=== PATIENT | female | born 1935 | race Two or more races ===

== ENCOUNTER 2020-01-02 22:36 | Inpatient (IN) | payer OTHER ==
[~2020-01-02] VITALS: Ht 160 cm; Wt 59.0 kg
--- NOTE | 2020-01-02 22:53 | NUR ---
Abhijeet Lynn - Son [phone]
[2020-01-02] MEDS ORDERED: ACETAMINOPHEN 650 MG/SUPP.RECT RC ONE ×2 (23:00)
[2020-01-02] MEDS ORDERED: IV NS 0.9% 500 ML BAG IV ONE (23:00)
--- NOTE | 2020-01-02 23:14 | NUR ---
[place] AT [facility]. TO ER BED 5. BREATHING RAPID AND SHALLOW. BROUGHT IN ON GURNEY. BROUGHT IN FOR DESATURATION @ 88% AT THE FACILITY PER REPORT. PT IS NOTED LETHARGIC. NOTED BREATHING RAPID AND SHALLOW. PT IS PLACED ON O2 WITH FACE MASK @ 15LPM AND SATTING @ 97%. PT IS ALSO NOTED W/ TACHYCARDIA IN 130S. AND RECTAL TEMP AT 103.5. IV LINE OBTAINED ON THE L AC 18G. BLOOD DRAWN AND GIVEN TO [facility] AT [facility]. WAS AT BEDSIDE FOR EVAL. URINE COLLECTED VIA STRAIGHT CATH
--- NOTE | 2020-01-02 23:20 | NUR ---
IV INITIATED LAC 18G. LABS DRAWN FROM SITE AND SENT TO LAB. IV INTACT AND PATENT, PLACED ON SALINE LOCK. URINE COLLECTED AND SENT TO LAB.
[2020-01-02] MEDS ORDERED: FLUT1BLS IH (23:22)
[2020-01-02] MEDS ORDERED: SITA50TA PO (23:22)
[2020-01-02] MEDS ORDERED: ATOR40TA PO (23:22)
[2020-01-02] MEDS ORDERED: ASPI-1420 PO (23:22)
[2020-01-02] MEDS ORDERED: CITA10TA9 PO (23:22)
[2020-01-02 23:28] LABS: BASOPHILS % (AUTO) 0.1 % (0.0-2.0); HEMATOCRIT 46 % (33-45); HEMOGLOBIN 14.8 g/dL (11.5-14.8); LYMPHOCYTES # (AUTO) 0.3 /CMM (0.8-4.8); MEAN CORPUSCULAR HGB CONC 33 g/dl (31.0-36.0); MEAN CORPUSCULAR VOLUME 82 fL (82-100); MONOCYTES # (AUTO) 1.1 /CMM (0.1-1.30); MONOCYTES % (AUTO) 8.2 % (2.0-12.0); NEUTROPHILS # (AUTO) 11.8 /CMM (1.8-8.9); NEUTROPHILS % (AUTO) 89.7 % (43.0-81.0); PLATELET COUNT (AUTO) 149 /CMM (150-450); RED BLOOD CELL COUNT(AUTO) 5.58 MIL/uL (4.0-5.2); WHITE BLOOD COUNT (AUTO) 13.2 K/uL (4.3-11.0)
[2020-01-02] MEDS ORDERED: LACT1CAP89 PO (23:28)
[2020-01-02] MEDS ORDERED: CYAN-51 PO (23:28)
[2020-01-02] MEDS ORDERED: METF-442 PO (23:28)
[2020-01-02] MEDS ORDERED: PSYL822P20 PO (23:28)
[2020-01-02] MEDS ORDERED: LEVO75TA7 PO (23:28)
[2020-01-02] MEDS ORDERED: MEMA10TA PO (23:28)
[2020-01-02] MEDS ORDERED: LOSA100T31 PO (23:28)
[2020-01-02] MEDS ORDERED: AMLO5TAB9 PO (23:28)
[2020-01-02] MEDS ORDERED: CHOL200013 PO (23:28)
[2020-01-02 23:31] LABS: APPEARANCE,URINE Cloudy (CLEAR); BILIRUBIN,URINE SMALL (NEGATIVE); BLOOD, URINE Large Ery/uL (NEGATIVE); COLOR,URINE Pink (YELLOW); KETONES,URINE Negative (NEGATIVE); LEUKOCYTE ESTERASE ,URINE Large (NEGATIVE); NITRITE, URINE Negative (NEGATIVE); PROTEIN,URINE >=300 mg/dl (NEGATIVE); UGLUCOSE Negative (NEGATIVE)
[2020-01-02 23:39] LABS: CALCIUM, SERUM 9.9 mg/dL (8.5-10.1); CARBON DIOXIDE 22 mmol/L (21-32); CHLORIDE 106 mmol/L (98-107); CREATININE 1.6 mg/dL (0.6-1.3); GLUCOSE 201 mg/dL (74-106); POTASSIUM 3.2 mmol/L (3.5-5.1); SODIUM SERUM 145 mmol/L (136-145); UREA NITROGEN, BLOOD 24 mg/dL (7-18)
[2020-01-02 23:53] LABS: ALANINE AMINOTRANSFERASE 23 U/L (12-78); ALBUMIN 3.4 g/dL (3.4-5.0); ALKALINE PHOSPHATASE 98 U/L (46-116); ASPARTATE AMINOTRANSFERASE 20 U/L (15-37); B-TYPE NATRIURETIC PEPTIDE 1801 PG/ML (0-125); BILIRUBIN,DIRECT 0.4 mg/dL (0.0-0.2); TOTAL PROTEIN, SERUM 7.9 g/dL (6.4-8.2)
[2020-01-02] MEDS ORDERED: AZITHROMYCIN 500 MG VIAL ONE (23:58)
[2020-01-03] MEDS ORDERED: AZITHROMYCIN 500 MG in IV D5W 250 ML IV ONE ×2
[2020-01-03] MEDS ORDERED: CEFTRIAXONE 1GM BAG (ER ONLY) 50 ML IV ONE (00:25)
[2020-01-03 00:26] LABS: BACTERIA,URINE Moderate /HPF (None Seen); RBC,URINE TOO NUMEROUS TO COUN /HPF (0-2); SQUAMOUS EPITHELIAL CELL,UR Few /HPF (None Seen); WBC,URINE TOO NUMEROUS TO COUN /HPF (0-3)
[2020-01-03] MEDS ORDERED: CEFTRIAXONE 1GM BAG (ER ONLY) 1 GM/50 ML PIGGYBACK IV ONE (00:30)
--- NOTE | 2020-01-03 00:36 | NUR ---
BP NOTED @ 93/58 HR 112. AWARE. NNO
[2020-01-03 01:24] LABS: FERRITIN 161 ng/mL (8-388)
--- NOTE | 2020-01-03 02:00 | NUR ---
PT'S O2 TITRATED DOWN TO 10LPM FROM 15LPM. TOLERATING WELL W/O ANY DISTRESS. O2 SAT @ 97%
--- NOTE | 2020-01-03 03:09 | NUR ---
dr. dominique at bedside
--- NOTE | 2020-01-03 04:01 | NUR ---
PT IN BED SLEEPING. NO RESP DISTRESS NOTED. EASILY ARROUSABLE.
--- NOTE | 2020-01-03 06:53 | NUR ---
PT IN BED SLEEPING. NAD NOTED. RESPONSIVE TO VERBAL STIMULI.
--- NOTE | 2020-01-03 07:16 | NUR ---
SPOKE WITH KONSTANTIN PT'S SON FOR PT UPDATE.
--- NOTE | 2020-01-03 07:18 | NUR ---
PLEASE CALL SON TO NOTIFY ROOM ASSISNGMENT.
[2020-01-03] MEDS ORDERED: ACET-2605 PO (07:41)
[2020-01-03] MEDS ORDERED: CALC-7 PO (07:41)
--- NOTE | 2020-01-03 08:00 | NUR ---
Request for tele bed to nursing evaporator supervisor. No tele monitors at this time per Steffi shay sup.
[2020-01-03] MEDS ORDERED: ASPIRIN 325 MG TABLET ONE (08:45)
[2020-01-03] MEDS ORDERED: ATORVASTATIN 40 MG TABLET PO SCH (09:00)
[2020-01-03] MEDS ORDERED: CITALOPRAM HYDROBROMIDE 10 MG TABLET PO SCH (09:00)
[2020-01-03] MEDS: ASPIRIN EC 81 MG TABLET.DR PO SCH (09:13)
[2020-01-03] MEDS: FLUTICASONE/VILANTEROL 1 EACH BLST.W.DEV IH SCH (09:14)
[2020-01-03] MEDS: LEVOTHYROXINE SODIUM 75 MCG TABLET PO SCH (09:14)
[2020-01-03] MEDS: MEMANTINE HCL 5 MG TABLET PO SCH ×2 (09:14→17:16)
[2020-01-03] MEDS: LINAGLIPTIN 5 MG TABLET PO SCH (09:14)
--- NOTE | 2020-01-03 09:22 | NUR ---
Await bed assignment. No beds available at this time. Pt updated with plan
--- NOTE | 2020-01-03 09:39 | NUR ---
report given to GRETTA Mathur - continue plan of care.
--- NOTE | 2020-01-03 10:25 | NUR ---
RECIEVED PATIENT FROM ER. PATIENT IN STABLE CONDITION. A/OX1, CONFUSED, RESPONSIVE AND AROUSABLE BUT LETHARGIC. NOT IN ANY FORM OF DISTRESS. NO SOB, PLACED ON 2 LPM OXYGEN VIA NC SATTING 94%. DENIED PAIN OR DISCOMFORT AT THIS TIME. IV ACCESS INTACT AND PATENT. KEPT PATIENT SKIN CLEAN AND DRY. SKIN INTACT. SITUATED PATIENT IN THE ROOM. SAFETY MEASURES INITIATED. BED IN LOW/LOCKED PSOTIION, SDIERAILS UPX2, CALLL IGHT IN REACH. WILL CONT TO MONIOTR ACCORDINGLY.
[2020-01-03 10:45] VITALS: BP 113/45
[2020-01-03] MEDS ORDERED: POTASSIUM CHLORIDE 20 MEQ TAB.PRT.SR PO SCH (11:00)
[2020-01-03 12:00] VITALS: BP 98/42
[2020-01-03] MEDS ORDERED: POTASSIUM CHLORIDE 20 MEQ TAB.PRT.SR PO ONE (13:00)
[2020-01-03] MEDS: ENOXAPARIN SODIUM 30 MG/0.3 ML DISP.SYRIN SQ SCH (13:10)
--- NOTE | 2020-01-03 13:33 | NUR ---
RN NOTES RECEIVED A CALL FROM FAMILY, KONSTANTIN (SON) [phone]. INFORMED US THAT PATIENT'S CAREGIVER WAS POSITIVE COVID. WILL INFORM
[2020-01-03] MEDS ORDERED: ENOXAPARIN SODIUM 30 MG/0.3 ML DISP.SYRIN SQ SCH (15:00)
[2020-01-03] MEDS ORDERED: Z GUARD REMEDY 2 OZ OINT TP PRN (15:00)
[2020-01-03] MEDS ORDERED: ONDANSETRON HCL/PF 4 MG/2 ML VIAL IVP PRN (15:00)
[2020-01-03] MEDS ORDERED: FEE PK DOSING 1 MIN EA MC ONE (15:51)
[2020-01-03 15:58] LABS: ABG BASE EXCESS -1.1 mmol/L; ABG OXYGEN SATURATION 94.4 % (92.0-98.5); ABG PCO2 29.2 mmHg (35.0-45.0); ABG PO2 67.7 mmHg (75.0-100.0); AaDO2 111.9 mmHg; COHb 0.3 % (0.5-1.5); MetHb 0.3 % (0.0-1.5); O2Hb 93.8 % (94.0-97.0); SITE, ABG Right Radial; VENT MODE, BG NC 3L
[2020-01-03 16:00] VITALS: BP 115/56
[2020-01-03 16:31] LABS: BASOPHILS % (AUTO) 0.1 % (0.0-2.0); EOSINOPHILS % (AUTO) 1.3 % (0.0-6.0); HEMATOCRIT 39 % (33-45); HEMOGLOBIN 12.7 g/dL (11.5-14.8); LYMPHOCYTES # (AUTO) 0.5 /CMM (0.8-4.8); LYMPHOCYTES % (AUTO) 2.9 % (20.0-44.0); MEAN CORPUSCULAR HGB CONC 32 g/dl (31.0-36.0); MEAN CORPUSCULAR VOLUME 81 fL (82-100); MONOCYTES # (AUTO) 0.5 /CMM (0.1-1.30); MONOCYTES % (AUTO) 3.5 % (2.0-12.0); NEUTROPHILS # (AUTO) 14.6 /CMM (1.8-8.9); NEUTROPHILS % (AUTO) 92.2 % (43.0-81.0); PLATELET COUNT (AUTO) 127 /CMM (150-450); RED BLOOD CELL COUNT(AUTO) 4.87 MIL/uL (4.0-5.2); WHITE BLOOD COUNT (AUTO) 15.8 K/uL (4.3-11.0)
[2020-01-03 16:39] LABS: CALCIUM, SERUM 8.8 mg/dL (8.5-10.1); CARBON DIOXIDE 25 mmol/L (21-32); CHLORIDE 107 mmol/L (98-107); GLUCOSE 162 mg/dL (74-106); POTASSIUM 3.7 mmol/L (3.5-5.1); SODIUM SERUM 143 mmol/L (136-145); UREA NITROGEN, BLOOD 38 mg/dL (7-18)
[2020-01-03] MEDS ORDERED: DEXTROSE 50%-WATER 50 ML DISP.SYRIN IV PRN (17:00)
[2020-01-03] MEDS: IV NS 0.9% 1,000 ML IV PRN (17:14)
[2020-01-03] MEDS: HYDROXYCHLOROQUINE 200 MG TABLET PO SCH (17:16)
[2020-01-03] MEDS ORDERED: VANCOMYCIN HCL 0.75 GM in IV D5W 250 ML IV SCH (18:00)
[2020-01-03] MEDS: BLOOD SUGAR DIAGNOSTIC 1 EACH STRIP IN SCH ×2 (18:25→22:36)
--- NOTE | 2020-01-03 18:57 | NUR ---
rn closing notes patient in stable condition. all needs attended and provided. all due meds given as ordered. kept patient skin clean and dry. kept patient safe and comfortable. bed in low/locked position, siderils up, HOB elevated. call light in reach. will endorsed accordingly.
--- NOTE | 2020-01-03 19:20 | NUR ---
RN OPENING NOTE: PATIENT IN BED, AWAKE, AND HAVING DINNER. AAOX1. ON O2 AT 2 LPM VIA NC. NO RESPIRATORY DISTRESS. DENIES PAIN AT THIS TIME. BED LOCKED, ALARM ON, LOW POSITION. SIDE RAILS X 2 UP. HOB ELEVATED. ON DROPLET PRECAUTION FOR SUSPECTED COVID. (L) AC G18 C/D/I, FLUSHING WELL, ON NS AT 75 MLS/HR. WILL TURN AND REPOSITION Q2H FOR SKIN MANAGEMENT. CALL LIGHT WITHIN REACH. WILL CONT. TO MONITOR.
[2020-01-03 20:00] VITALS: BP 115/56
[2020-01-03] MEDS: MEROPENEM 1 G in IV NS 0.9% 100 ML IV SCH (22:10)
[2020-01-03] MEDS: INSULIN REGULAR, HUMAN 100 UNIT/ML 3 ML VIAL SQ PRN (22:37)
[2020-01-04] VITALS: BP 127/64
[2020-01-04] MEDS: AZITHROMYCIN 500 MG in IV D5W 250 ML IV SCH (00:33)
[2020-01-04 04:00] VITALS: BP_SYST 127; BP_SYST 143; BP_DIAS 64; BP_DIAS 70
--- NOTE | 2020-01-04 06:59 | NUR ---
RN CLOSING NOTE: PATIENT IN BED, ASLEEP, BUT EASILY AROUSABLE. NO SOB. NO C/O PAIN. IN NO ACUTE DISTRESS. PLACED AN ORDER FOR I.T. TO FIX TELEPHONE IN ROOM. WILL ENDORSE TO AM SHIFT NURSE FOR CONTINUITY OF CARE.
--- NOTE | 2020-01-04 07:30 | NUR ---
RN OPENING NOTE Patient is resting in bed, A/O x1, showing no signs of acute distress or SOB, saturating 94% on 3L NC. IV deonte in the RFA #22G is clean and patent running NS @ 75ml/hour. Patient has no complaints of pain at this time. Bed is in lowest position, side rails x3 in upright position, call light is within reach and patient is aware of how to call for assistance when needed. Will continue with plan of care.
[2020-01-04] MEDS: PANTOPRAZOLE 40 MG TABLET.DR PO SCH (07:37)
[2020-01-04] MEDS: BLOOD SUGAR DIAGNOSTIC 1 EACH STRIP IN SCH ×4 (07:37→21:39)
[2020-01-04] MEDS: LEVOTHYROXINE SODIUM 75 MCG TABLET PO SCH (07:37)
[2020-01-04 08:00] VITALS: BP 145/64
[2020-01-04 08:43] LABS: BASOPHILS % (AUTO) 0.2 % (0.0-2.0); EOSINOPHILS % (AUTO) 0.2 % (0.0-6.0); HEMATOCRIT 36 % (33-45); HEMOGLOBIN 12.3 g/dL (11.5-14.8); LYMPHOCYTES # (AUTO) 0.4 /CMM (0.8-4.8); MEAN CORPUSCULAR HGB CONC 34 g/dl (31.0-36.0); MEAN CORPUSCULAR VOLUME 80 fL (82-100); MONOCYTES # (AUTO) 0.8 /CMM (0.1-1.30); MONOCYTES % (AUTO) 5.5 % (2.0-12.0); NEUTROPHILS # (AUTO) 13.4 /CMM (1.8-8.9); NEUTROPHILS % (AUTO) 91.1 % (43.0-81.0); PLATELET COUNT (AUTO) 111 /CMM (150-450); RED BLOOD CELL COUNT(AUTO) 4.55 MIL/uL (4.0-5.2); WHITE BLOOD COUNT (AUTO) 14.7 K/uL (4.3-11.0)
[2020-01-04 09:04] LABS: ALANINE AMINOTRANSFERASE 19 U/L (12-78); ALBUMIN 2.5 g/dL (3.4-5.0); ALKALINE PHOSPHATASE 75 U/L (46-116); ASPARTATE AMINOTRANSFERASE 15 U/L (15-37); BILIRUBIN,TOTAL 1.1 mg/dL (0.2-1.0); CALCIUM, SERUM 8.8 mg/dL (8.5-10.1); CARBON DIOXIDE 26 mmol/L (21-32); CHLORIDE 107 mmol/L (98-107); CREATININE 1.6 mg/dL (0.6-1.3); GLUCOSE 166 mg/dL (74-106); MAGNESIUM 2.2 mg/dL (1.8-2.4); PHOSPHORUS 3.3 mg/dL (2.5-4.9); POTASSIUM 3.6 mmol/L (3.5-5.1); SODIUM SERUM 143 mmol/L (136-145); TOTAL PROTEIN, SERUM 6.8 g/dL (6.4-8.2); UREA NITROGEN, BLOOD 35 mg/dL (7-18)
[2020-01-04 09:11] LABS: CHOLESTEROL 77 mg/dL (<200); HDL CHOLESTEROL 13 mg/dL (40-60); LDL 40 mg/dL (0-99); THYROID STIMULATING HORMONE 1.508 uIU/mL (0.358-3.74); TRIGLYCERIDES 186 mg/dL (30-150)
[2020-01-04] MEDS: FLUTICASONE/VILANTEROL 1 EACH BLST.W.DEV IH SCH (09:14)
[2020-01-04] MEDS: MEROPENEM 1 G in IV NS 0.9% 100 ML IV SCH ×2 (09:14→20:36)
[2020-01-04] MEDS: ASPIRIN EC 81 MG TABLET.DR PO SCH (09:14)
[2020-01-04] MEDS: LINAGLIPTIN 5 MG TABLET PO SCH (09:14)
[2020-01-04] MEDS: HYDROXYCHLOROQUINE 200 MG TABLET PO SCH ×2 (09:14→17:49)
[2020-01-04] MEDS: INSULIN REGULAR, HUMAN 100 UNIT/ML 3 ML VIAL SQ PRN ×3 (09:17→17:50)
[2020-01-04] MEDS: MEMANTINE HCL 5 MG TABLET PO SCH ×2 (09:19→17:49)
[2020-01-04 09:31] LABS: IRON, SERUM 9 ug/dl (50-175); TOTAL IRON BINDING CAPACITY 190 ug/dl (250-450)
--- NOTE | 2020-01-04 11:00 | NUR ---
RN NOTE ok per DIRECTOR CORPORATE SECURITY to give Lovenox
[2020-01-04] MEDS: ENOXAPARIN SODIUM 30 MG/0.3 ML DISP.SYRIN SQ SCH (11:03)
[2020-01-04 11:59] LABS: ABG BASE EXCESS -1.6 mmol/L; ABG OXYGEN SATURATION 93.2 % (92.0-98.5); ABG PCO2 31.9 mmHg (35.0-45.0); ABG PH 7.449 (7.350-7.450); ABG PO2 66.9 mmHg (75.0-100.0); AaDO2 152.8 mmHg; COHb 0.3 % (0.5-1.5); MetHb 0.3 % (0.0-1.5); O2Hb 92.6 % (94.0-97.0); SITE, ABG Right Radial; VENT MODE, BG N/C 36%
[2020-01-04 12:00] VITALS: BP 135/72
[2020-01-04] MEDS: SOD FERRIC GLUC 125 MG in IV NS 0.9% 100 ML IV SCH (14:19)
[2020-01-04] MEDS: IV NS 0.9% 1,000 ML IV PRN (14:22)
[2020-01-04 16:00] VITALS: BP 148/72
--- NOTE | 2020-01-04 18:36 | NUR ---
RN CLOSING NOTE Patient is resting in bed, A/O x1, showing no signs of acute distress or SOB, saturating 94% on 3L NC. IV deonte in the RFA #22G is clean and patent running NS @ 75ml/hour. Patient has no complaints of pain at this time. All patient needs met, all due medications given. Patient kept clean and comfortable throughout the shift. Bed is in lowest position, side rails x3 in upright position, call light is within reach, fall safety and aspiration precautions enforced. Will endorse to manager shift.
[2020-01-04] MEDS ORDERED: CEFEPIME 1 GM in IV D5W 50 ML IV SCH (19:30)
--- NOTE | 2020-01-04 19:30 | NUR ---
RESEARCH SCIENTIST NOTE RECEIVED PATIENT AOX2 BREATHING NORMAL NO SOB NOTED. RESPIRATION EVEN NON LABORED. NO S/S OF ACUTE DISTRESS NOTED. DENIES ANY PAIN OR DISCOMFORT. ON OXYGEN 3L/MIN VIA NC SATURATING-9%. IV SITE RFA #22G INTACT PATENT FLUSHING WELL. SKIN WARM AND DRY TO TOUCH. ABD SOFT AND NON DISTENDED. ALL SAFETY MEASURES IN PLACE, SIDE RAILS UP X2, CALL LIGHT WITHIN REACH. WILL CONT WITH YANDY. Addendum: 01/04/20 at 2333 by ANMOL IVAN RN ERROR IN CHARTING - PATIENT SATURATION IS 95%.
[2020-01-04] MEDS ORDERED: CEFEPIME 1 GM VIAL ONE (19:44)
[2020-01-04 20:00] VITALS: BP 136/70
--- NOTE | 2020-01-04 21:00 | NUR ---
JOURNEYMAN LINEMAN NOTE PATIENT WAS SCRATCHING HER ARM PULLED HER IV ACCIDENTLY NO S/S OF BLEEDING NOTED. REINSERT IV ON LFA #22G PATENT INTACT FLUSHED WELL.
[2020-01-05] VITALS: BP 133/66
[2020-01-05] MEDS: AZITHROMYCIN 500 MG in IV D5W 250 ML IV SCH (01:09)
[2020-01-05] MEDS: ACETAMINOPHEN 325 MG TABLET PO PRN ×2 (03:48→16:50)
--- NOTE | 2020-01-05 03:48 | NUR ---
METAL BOX MAKER NOTE PRN TYLENOL 650MG PO WAS GIVEN ORDERED FOR FEVER 99.1. WILL CONT TO MONITOR FOR REASSESS FOR EFFECTIVENESS.
[2020-01-05 04:00] VITALS: BP 145/87
--- NOTE | 2020-01-05 04:48 | NUR ---
COMMUNITY HEALTH EDUCATION COORDINATOR NOTE TYLENOL WAS EFFECTIVE TEMP. LOWER TO 97.8,PATIENT RESTED COMFORTABLY IN BED.
--- NOTE | 2020-01-05 06:14 | NUR ---
LEGAL OFFICER NOTE PATIENT RESTED WELL, NO S/S OF DISTRESS NOTED. RESPIRATION EVEN NON LABORED. SATURATING 95% ON 3L/MIN VIA NC. IV SITE LFA #22G INTACT PATENT FLUSHING WELL. SKIN WARM AND DRY TO TOUCH. ALL DUE MEDICATIONS WERE GIVEN ORDERED TOLERATED WELL. KEPT CLEAN AND COMFORTABLE THROUGH OUT THE SHIFT. ALL SAFETY MEASURES IN PLACE, SIDE RAILS UP X3. CALL LIGHT WITHIN REACH. WILL ENDORSE TO AM NURSE FOR YANDY.
[2020-01-05 06:42] LABS: BASOPHILS % (AUTO) 0.2 % (0.0-2.0); HEMATOCRIT 36 % (33-45); HEMOGLOBIN 11.6 g/dL (11.5-14.8); LYMPHOCYTES # (AUTO) 0.5 /CMM (0.8-4.8); LYMPHOCYTES % (AUTO) 4.3 % (20.0-44.0); MEAN CORPUSCULAR HGB CONC 32 g/dl (31.0-36.0); MEAN CORPUSCULAR VOLUME 81 fL (82-100); MONOCYTES % (AUTO) 9.2 % (2.0-12.0); NEUTROPHILS % (AUTO) 84.3 % (43.0-81.0); PLATELET COUNT (AUTO) 111 /CMM (150-450); RED BLOOD CELL COUNT(AUTO) 4.39 MIL/uL (4.0-5.2); WHITE BLOOD COUNT (AUTO) 10.7 K/uL (4.3-11.0)
[2020-01-05 07:07] LABS: ALBUMIN 2.2 g/dL (3.4-5.0); BILIRUBIN,TOTAL 1.1 mg/dL (0.2-1.0); CALCIUM, SERUM 8.3 mg/dL (8.5-10.1); CREATININE 1.2 mg/dL (0.6-1.3); PHOSPHORUS 2.9 mg/dL (2.5-4.9); POTASSIUM 3.1 mmol/L (3.5-5.1); TOTAL PROTEIN, SERUM 6.3 g/dL (6.4-8.2)
[2020-01-05] MEDS: BLOOD SUGAR DIAGNOSTIC 1 EACH STRIP IN SCH ×4 (07:59→21:37)
[2020-01-05 08:00] VITALS: BP_SYST 131; BP_SYST 137; BP_DIAS 89
[2020-01-05] MEDS: ASPIRIN EC 81 MG TABLET.DR PO SCH (08:00)
[2020-01-05] MEDS: LEVOTHYROXINE SODIUM 75 MCG TABLET PO SCH (08:00)
[2020-01-05] MEDS: MEMANTINE HCL 5 MG TABLET PO SCH ×2 (08:00→16:59)
[2020-01-05] MEDS: PANTOPRAZOLE 40 MG TABLET.DR PO SCH (08:00)
[2020-01-05] MEDS: FLUTICASONE/VILANTEROL 1 EACH BLST.W.DEV IH SCH (08:00)
[2020-01-05] MEDS: HYDROXYCHLOROQUINE 200 MG TABLET PO SCH (08:00)
[2020-01-05] MEDS: LINAGLIPTIN 5 MG TABLET PO SCH (08:02)
[2020-01-05] MEDS: ENOXAPARIN SODIUM 30 MG/0.3 ML DISP.SYRIN SQ SCH (08:46)
[2020-01-05] MEDS: INSULIN REGULAR, HUMAN 100 UNIT/ML 3 ML VIAL SQ PRN ×3 (08:47→16:59)
[2020-01-05] MEDS ORDERED: POTASSIUM CHLORIDE 20 MEQ TAB.PRT.SR PO SCH (10:00)
--- NOTE | 2020-01-05 10:00 | NUR ---
AIRCRAFT POWER PLANT ASSEMBLER NOTES PER DR. GODINEZ ALL COVID NEGATIVE PATIENTS NOT ON VENT MAY DC TELEMETRY.
[2020-01-05] MEDS: IV NS 0.9% 1,000 ML IV PRN (10:53)
[2020-01-05] MEDS: CEFEPIME 2 GM in IV D5W 100 ML IV SCH (11:03)
[2020-01-05 12:00] VITALS: BP 153/78
[2020-01-05] MEDS: POTASSIUM CHLORIDE 20 MEQ POWDER PACKET PO SCH ×2 (12:33→13:37)
[2020-01-05] MEDS: SOD FERRIC GLUC 125 MG in IV NS 0.9% 100 ML IV SCH (14:30)
[2020-01-05 16:00] VITALS: BP 145/71
--- NOTE | 2020-01-05 19:15 | NUR ---
RN OPENING NOTE RECEIVED PATIENT IN BED RESTING WITH HOB ELEVATED. CONFUSED. BREATHING EVEN AND NON LABORED, NO SOB NOTED AT THIS TIME. ON O2 3 LPM VIA NC. RESPONSIVE TO TACTILE STIMULI. IV SITE ON LFA GAUGE 22, PATENT. IV NS RUNNING AT 75 MLS/HR. PATIENT IS BEDRIDDEN. IN NO APPARENT DISTRESS NOTED AT THIS TIME. BED LOWERED AND LOCKED FOR SAFETY. WILL CONTINUE TO MONITOR.
[2020-01-05 20:00] VITALS: BP 146/69
--- NOTE | 2020-01-05 23:40 | NUR ---
PLATE PUT IN WORKER NOTE TRANSFERRED PATIENT TO ROOM 311 BED 1 IN STABLE CONDITION AROUND THIS TIME. IN NO APPARENT DISTRESS NOTED. CHART AND ALL MEDICATIONS SENT WITH PATIENT. GAVE REPORT TO EVETTE GLYNN FOR CONTINUATION OF CARE.
--- NOTE | 2020-01-05 23:45 | NUR ---
transfer note. patient arrived from [facility]. patient transferred to 311 bed one for continuity of care. patient in no apparent distress. vs to be taken. patient given access to call light patient has mild lethargy she is oriented x1 given access to call light. 311 close to nurse station. bed alarm active. pt originally admitted for sepsis r/o covid. covid test is negative. flu test is still pending. universal preacations in place. bed down locked srx3. will cont to monitor.
[2020-01-06 00:33] VITALS: BP 151/86
[2020-01-06 00:36] VITALS: BP 151/86
[2020-01-06] MEDS: IV NS 0.9% 1,000 ML IV PRN (02:11)
[2020-01-06] MEDS: BLOOD SUGAR DIAGNOSTIC 1 EACH STRIP IN SCH ×2 (06:59→11:33)
[2020-01-06] MEDS: INSULIN REGULAR, HUMAN 100 UNIT/ML 3 ML VIAL SQ PRN ×2 (07:04→12:07)
[2020-01-06 07:13] LABS: BASOPHILS % (AUTO) 0.4 % (0.0-2.0); EOSINOPHILS % (AUTO) 1.1 % (0.0-6.0); HEMATOCRIT 39 % (33-45); HEMOGLOBIN 12.8 g/dL (11.5-14.8); LYMPHOCYTES # (AUTO) 0.5 /CMM (0.8-4.8); LYMPHOCYTES % (AUTO) 6.7 % (20.0-44.0); MEAN CORPUSCULAR HGB CONC 33 g/dl (31.0-36.0); MEAN CORPUSCULAR VOLUME 80 fL (82-100); MONOCYTES % (AUTO) 14.8 % (2.0-12.0); NEUTROPHILS # (AUTO) 5.2 /CMM (1.8-8.9); PLATELET COUNT (AUTO) 122 /CMM (150-450); WHITE BLOOD COUNT (AUTO) 6.8 K/uL (4.3-11.0)
[2020-01-06 07:24] LABS: CALCIUM, SERUM 8.9 mg/dL (8.5-10.1); MAGNESIUM 1.6 mg/dL (1.8-2.4); PHOSPHORUS 3.1 mg/dL (2.5-4.9); POTASSIUM 3.5 mmol/L (3.5-5.1)
--- NOTE | 2020-01-06 07:45 | NUR ---
MS RN OPENING NOTES RECEIVED PT IN BED, ASLEEP, EASILY AROUSED. ON SUPPLEMENTARY OXYGEN AT 2LPM VIA NC, WITH NO ACUTE RESPIRATORY DISTRESS NOTED. PT DENIES ANY PAIN OR DISCOMFORT AT THIS TIME. IVF NS AT 75 ML/HR TO LFA G22,INTACT AND FLUID INFUSING WELL. PT KEPT COMFORTABLE. CALL LIGHT KEPT WITHIN REACH. PT'S BED IN LOWEST, LOCKED POSITION WITH SRX3. WILL CONTINUE PLAN OF CARE.
--- NOTE | 2020-01-06 07:45 | NUR ---
RN PM CLOSING NOTE. PATIENT IN BED RESTING WITH HOB ELEVATED. CONFUSED. BREATHING EVEN AND UN LABORED, RESP EVEN AND REGULAR. ON O2 3 LPM VIA NC. RESPONSIVE TO VOICE DENIES PAIN DISCOMFORT. . IV SITE ON LFA GAUGE 22, PATENT. IV NS RUNNING AT 75 MLS/HR. PATIENT IS BEDRIDDEN. IN NO APPARENT DISTRESS AT THIS TIME. BED LOW AND LOCKED FOR SAFETY. PATIENT ABLE TO SLEEP MOST OF THE NIGHT AND HAD 2 LARGE URINE INCONTINENCE AND 1 BM. ENDORSED TO DAY SHIFT THAT STRAIGHT CATH IS STILL NEEDED TO COLLECT URINE SAMPLE. KAY STATES SHE WILL CARRY THAT OUT LATER TODAY.
[2020-01-06 08:00] VITALS: BP 114/65
[2020-01-06] MEDS: MEMANTINE HCL 5 MG TABLET PO SCH (08:26)
[2020-01-06] MEDS: ASPIRIN EC 81 MG TABLET.DR PO SCH (08:26)
[2020-01-06] MEDS: LEVOTHYROXINE SODIUM 75 MCG TABLET PO SCH (08:26)
[2020-01-06] MEDS: LINAGLIPTIN 5 MG TABLET PO SCH (08:26)
[2020-01-06] MEDS: PANTOPRAZOLE 40 MG TABLET.DR PO SCH (08:27)
[2020-01-06] MEDS: ENOXAPARIN SODIUM 30 MG/0.3 ML DISP.SYRIN SQ SCH (08:27)
[2020-01-06] MEDS: FLUTICASONE/VILANTEROL 1 EACH BLST.W.DEV IH SCH (08:36)
[2020-01-06] MEDS ORDERED: CEFEPIME 2 GM in IV D5W 100 ML IV SCH (10:00)
[2020-01-06] MEDS: Magnesium 1GM/D5W 100ML PREMIX 100 ML IV SCH ×2 (10:18→11:26)
[2020-01-06] MEDS ORDERED: Magnesium 1GM/D5W 100ML PREMIX 100 ML IV SCH (10:23)
--- NOTE | 2020-01-06 11:30 | NUR ---
MS RN NOTES SPOKE TO MENDEL/DENA VIA PHONE, TRANSFERRED TO LUIS FERNANDO/DIALLO REGARDING PLACEMENT.
--- NOTE | 2020-01-06 12:30 | NUR ---
MS RN NOTES CALLED PHARMACY AND SPOKE TO RADHA REGARDING PT'S CEFEPIME NOT IN THE CASSETTE/UNIT AT THIS TIME. WILL ADMINISTER WHEN DRUG COMES AVAILABLE.
[2020-01-06] MEDS: CEFEPIME 2 GM in IV D5W 100 ML IV SCH (13:06)
[2020-01-06] MEDS ORDERED: LEVO500T90 PO (13:11)
[2020-01-06] MEDS: SOD FERRIC GLUC 125 MG in IV NS 0.9% 100 ML IV SCH (14:40)
[2020-01-06 16:00] VITALS: BP 148/78
--- NOTE | 2020-01-06 16:20 | NUR ---
MS REGISTERED PUBLIC HEALTH NURSE NOTES PT TO DISCHARGE HOME WITH SON/DERECK. PT TOLERATING RA, WITH NO ACUTE RESPIRATORY DISTRESS NOTED. PT DENIES ANY PAIN OR DISCOMFORT AT THE TIME OF DISCHARGE. PT UNABLE TO SIGN D/T WEAKNESS. 2 RNS SIGNED DISCHARGE INSTRUCTIONS AND INVENTORY LIST. PT HAD HER BELONGINGS. CM PROVIDED SHIRT. PIV TO LFA G22, REMOVED AND APPLIED DRESSING. SKIN INTACT, NO PICTURES TAKEN AND FILED IN THE CHART. VS STABLE AND RECORDED. PHYSICAL THERAPY HELPED WITH ASSISTING PT GOING INTO THE CAR. PT LEFT THE HOSPITAL AT 1555. CHARGE NURSE/KA AND HOSPITALIST/CN AWARE OF DISCHARGE.
[2020-01-07 04:06] LABS: *SPE A/G RATIO 0.7 (0.7-1.7); *SPE ALBUMIN 2.3 g/dL (2.9-4.4); *SPE ALPHA-1-GLOBULIN 0.4 g/dL (0.0-0.4); *SPE ALPHA-2-GLOBULIN 1.2 g/dL (0.4-1.0); *SPE BETA GLOBULIN 0.9 g/dL (0.7-1.3); *SPE GLOBULIN, TOTAL 3.3 g/dL (2.2-3.9); *SPE M-SPIKE Not Observed g/dL (Not Observed); *SPEGAMMA GLOBULIN 0.8 g/dL (0.4-1.8)
[2020-01-07 07:06] LABS: PTH, INTACT 17 pg/mL (15-65)
== END 2020-01-06 17:22 | disposition home health service (06) | DRG 871 ==
LOC: ER 22:36 → TELE-TD 01-03 09:46 → TELE1 01-03 10:09 → MEDSG1 01-05 11:18 → MED 01-06 00:16
PROVIDERS: ADMIT Nurse Practitioner Acute Care; ATTEND Nurse Practitioner Acute Care
DX: A41.51 Sepsis due to Escherichia coli [E. coli] (principal); G93.41 Metabolic encephalopathy; J96.01 Acute respiratory failure with hypoxia; N17.0 Acute kidney failure with tubular necrosis; J18.9 Pneumonia, unspecified organism; E87.2 Acidosis; N39.0 Urinary tract infection, site not specified; J44.0 Chronic obstructive pulmonary disease with (acute) lower respiratory infection; R65.20 Severe sepsis without septic shock; E03.9 Hypothyroidism, unspecified; E87.6 Hypokalemia; F03.90 Unspecified dementia, unspecified severity, without behavioral disturbance, psychotic disturbance, mood disturbance, and anxiety; D72.829 Elevated white blood cell count, unspecified; E80.6 Other disorders of bilirubin metabolism; D69.6 Thrombocytopenia, unspecified; F32.9 Major depressive disorder, single episode, unspecified; N18.9 Chronic kidney disease, unspecified; E11.22 Type 2 diabetes mellitus with diabetic chronic kidney disease; E78.5 Hyperlipidemia, unspecified; D50.9 Iron deficiency anemia, unspecified; I12.9 Hypertensive chronic kidney disease with stage 1 through stage 4 chronic kidney disease, or unspecified chronic kidney disease
CPT/HCPCS: 36415; 36600; 71045-TC; 80048-TC; 80053-TC; 80061-TC; 80076-TC; 81000-TC; 82550-TC; 82728-TC; 82803-TC; 82962-TC; 83540-TC; 83605-TC; 83615-TC; 83735-TC; 83880; 83970; 84100-TC; 84155; 84165; 84443-TC; 84484-TC; 85025-TC; 85730-TC; 86140; 87040-TC; 87081-TC; 87086-TC; 87186-TC; 93307-TC; 97530-TC; G0378; J0456; J0692; J0696; J1650; J1815; J2185; J2916; J3370; J3475; J7030; J7040; J7060

== ENCOUNTER 2021-03-22 21:05 | Inpatient (IN) | payer BC, OTHER ==
[~2021-03-22] VITALS: Ht 149.9 cm; Wt 48.5 kg
[~2021-03-22 21:05] MED LIST: ACET-2605 PO; AMLO-212 PO; ASPI-1420 PO; ATOR40TA PO; CALC-7 PO; CHOL200013 PO; CITA10TA9 PO; CYAN-51 PO; FLUT1BLS IH; LACT1CAP89 PO; LEVO500T90 PO; LEVO75TA7 PO; LOSA100T31 PO; MEMA10TA PO; METF-442 PO; PSYL822P20 PO; SITA50TA PO
--- NOTE | 2021-03-22 21:20 | NUR ---
PATIENT BIB SON FOR C/O "WOKE UP W/ LEFT SHOULDER AND LEFT FACIAL PAIN SICNE 1200 NOON" -FACIAL DROOP, - SLURRED APEECH. HAD TYLENOL 650 MG 3 HRS CABIN FURNISHINGS INSTALLER. PATIENT IS A/O X 4, RR EVEN AND UNLABORED, NO SOB NOTED. PATIENT CONNECTED TO FLAVOR MAKER, AND POX. WILL CONTINUE TO MONITOR.
--- NOTE | 2021-03-22 21:36 | NUR ---
X RAY AT BEDSIDE
[2021-03-22] MEDS ORDERED: ASPIRIN 325 MG TABLET ONE (22:30)
[2021-03-22] MEDS ORDERED: IBUPROFEN 400 MG TABLET PO ONE (22:30)
[2021-03-22] MEDS ORDERED: ASPIRIN 325 MG TABLET PO ONE (22:30)
[2021-03-22] MEDS ORDERED: IBUPROFEN 400 MG TABLET ONE (22:30)
[2021-03-22 22:36] LABS: MEAN CORPUSCULAR HGB CONC 33 g/dl (31.0-36.0); WHITE BLOOD COUNT (AUTO) 13.3 K/uL (4.3-11.0)
[2021-03-22 22:40] LABS: BASOPHILS # (AUTO) 0.1 K/uL (0.0-0.2); BASOPHILS % (AUTO) 0.4 % (0.0-2.0); EOSINOPHILS % (AUTO) 0.3 % (0.0-6.0); HEMATOCRIT 44 % (33-45); HEMOGLOBIN 14.5 g/dL (11.5-14.8); LYMPHOCYTES % (AUTO) 7.6 % (20.0-44.0); MEAN CORPUSCULAR VOLUME 82 fL (82-100); MONOCYTES % (AUTO) 7.5 % (2.0-12.0); NEUTROPHILS # (AUTO) 11.2 K/uL (1.8-8.9); NEUTROPHILS % (AUTO) 84.2 % (43.0-81.0); PLATELET COUNT (AUTO) 213 K/uL (150-450)
--- NOTE | 2021-03-22 22:45 | NUR ---
COVID SWAB COLLECTED SENT TO LAB
[2021-03-22] MEDS ORDERED: PIPERACILLIN /TAZOBACTAM 3.375 G VIAL IV ONE (22:52)
[2021-03-22] MEDS ORDERED: PIPERACILLIN /TAZOBACTAM 3.375 G in IV D5W 50 ML IV ONE (23:00)
[2021-03-22] MEDS ORDERED: VANCOMYCIN 1 GM in IV D5W 250 ML IV ONE (23:00)
[2021-03-22] MEDS ORDERED: VANCOMYCIN 1 GM VIAL ONE (23:01)
[2021-03-22 23:11] LABS: CALCIUM, SERUM 9.5 mg/dL (8.5-10.1); CARBON DIOXIDE 26 mmol/L (21-32); CHLORIDE 102 mmol/L (98-107); CREATININE 1.1 mg/dL (0.6-1.3); GLUCOSE 197 mg/dL (74-106); POTASSIUM 4.2 mmol/L (3.5-5.1); SODIUM SERUM 139 mmol/L (136-145); UREA NITROGEN, BLOOD 34 mg/dL (7-18)
--- NOTE | 2021-03-22 23:23 | NUR ---
lactic 3.0
[2021-03-22 23:27] LABS: ALANINE AMINOTRANSFERASE 28 U/L (12-78); ALKALINE PHOSPHATASE 87 U/L (46-116); ASPARTATE AMINOTRANSFERASE 16 U/L (15-37); BILIRUBIN,DIRECT 0.3 mg/dL (0.0-0.2); BILIRUBIN,TOTAL 1.4 mg/dL (0.2-1.0); TOTAL PROTEIN, SERUM 8.1 g/dL (6.4-8.2)
--- NOTE | 2021-03-22 23:32 | NUR ---
REPORT GIVEN TO GRETTA DRAKE
--- NOTE | 2021-03-22 23:50 | NUR ---
BLANK DRILLER NOTE 86 YEAR OLD WHITE FEMALE ADMIT TO SUSAN UNIT AT ROOM 110 ON TELE MONITORING FOR CHEST PAIN AND LEFT SHOULDER PAIN,ADMITTING DIAGNOSIS: IS EARLY SEPSIS AND PNA,PATIENT IS ALERT ORIENTED VERBALLY RESPONSIVE ON 2L NASAL CANNULA, O2:96% IV SITE IS ON RIGHT AC INTACT PATENT,AMBULATORY WITH ASSIST SAFETY MEASURE IMPLEMENT BED ALARM IS ON BED IN LOW POSITON AND LOCKED CALL LIGHT WITHIN REACH,CONTINUE TO MONITOR.
--- NOTE | 2021-03-22 23:51 | NUR ---
PATIENT TRANSFERRED PER ACLS PROTOCOL
[2021-03-23] VITALS: BP 158/64
[2021-03-23] MEDS ORDERED: ACETAMINOPHEN 325 MG TABLET PO PRN
[2021-03-23] MEDS ORDERED: INSULIN REGULAR, HUMAN 100 UNIT/ML 3 ML VIAL SQ PRN
[2021-03-23] MEDS ORDERED: MAG HYDROX/AL HYDROX/SIMETH 30 ML UDC PO PRN
[2021-03-23] MEDS ORDERED: ZOLPIDEM TARTRATE 5 MG TABLET PO PRN
[2021-03-23] MEDS ORDERED: MAGNESIUM HYDROXIDE 30 ML UDC PO PRN
[2021-03-23] MEDS ORDERED: Z GUARD REMEDY 2 OZ OINT TP PRN
[2021-03-23] MEDS ORDERED: ONDANSETRON HCL/PF 4 MG/2 ML VIAL IVP PRN
[2021-03-23] MEDS: IV NS 0.9% 1,000 ML IV PRN (00:29)
[2021-03-23] MEDS ORDERED: CEFTRIAXONE 1 G VIAL ONE (00:38)
[2021-03-23] MEDS: CEFTRIAXONE 1 G in IV D5W 50 ML IV SCH ×2 (00:42→23:39)
[2021-03-23] MEDS ORDERED: AZITHROMYCIN 500 MG VIAL ONE (00:54)
[2021-03-23] MEDS: AZITHROMYCIN 500 MG in IV D5W 250 ML IV SCH ×2 (01:01→23:51)
[2021-03-23] MEDS ORDERED: DEXTROSE 50%-WATER 50 ML DISP.SYRIN IV PRN ×2 (02:30)
[2021-03-23 06:45] VITALS: BP 131/61
--- NOTE | 2021-03-23 06:52 | NUR ---
RN NOTE PATIENT REMAINS ON ALERT ORIENTED X4 VERBALLY RESPONSIVE ON 2L OXYGEN VIA NASAL CANNULA,NO SOB NOT ACUTE DISTRESS NOTED,ALL DUE MED GIVEN MD ORDERED KEEP CLEAN AND DRY ALL THE TIME,ALL NEEDS MET ENDORSE NEXT COMING SHIFT FOR CONTINUATION OF CARE.
[2021-03-23 07:27] LABS: BASOPHILS % (AUTO) 0.3 % (0.0-2.0); EOSINOPHILS % (AUTO) 0.2 % (0.0-6.0); HEMATOCRIT 42 % (33-45); HEMOGLOBIN 13.5 g/dL (11.5-14.8); LYMPHOCYTES # (AUTO) 0.7 K/uL (0.8-4.8); LYMPHOCYTES % (AUTO) 5.9 % (20.0-44.0); MEAN CORPUSCULAR HGB CONC 32 g/dl (31.0-36.0); MEAN CORPUSCULAR VOLUME 82 fL (82-100); MONOCYTES # (AUTO) 1.1 K/uL (0.1-1.30); NEUTROPHILS # (AUTO) 10.6 K/uL (1.8-8.9); NEUTROPHILS % (AUTO) 84.6 % (43.0-81.0); PLATELET COUNT (AUTO) 158 K/uL (150-450); RED BLOOD CELL COUNT(AUTO) 5.07 MIL/uL (4.0-5.2); WHITE BLOOD COUNT (AUTO) 12.5 K/uL (4.3-11.0)
[2021-03-23] MEDS ORDERED: BLOOD SUGAR DIAGNOSTIC 1 EACH STRIP IN SCH (07:30)
[2021-03-23 07:41] LABS: CALCIUM, SERUM 8.7 mg/dL (8.5-10.1); CREATININE 0.9 mg/dL (0.6-1.3); MAGNESIUM 2.1 mg/dL (1.8-2.4); PHOSPHORUS 3.9 mg/dL (2.5-4.9); POTASSIUM 3.4 mmol/L (3.5-5.1)
[2021-03-23 08:00] VITALS: BP 151/66
[2021-03-23] MEDS: ATORVASTATIN 40 MG TABLET PO SCH (08:36)
[2021-03-23] MEDS: CYANOCOBALAMIN 500 MCG TABLET PO SCH (08:36)
[2021-03-23] MEDS: CHOLECALCIFEROL 1,000 UNIT TABLET (VIT D3) PO SCH (08:36)
[2021-03-23] MEDS: ASPIRIN EC 81 MG TABLET.DR PO SCH (08:36)
[2021-03-23] MEDS: MEMANTINE HCL 5 MG TABLET PO SCH ×2 (08:37→17:21)
[2021-03-23] MEDS: LINAGLIPTIN 5 MG TABLET PO SCH (08:37)
[2021-03-23] MEDS: AMLODIPINE BESYLATE 5 MG TABLET PO SCH ×2 (08:37→17:21)
[2021-03-23] MEDS: LOSARTAN POTASSIUM 50 MG TABLET PO SCH (08:37)
[2021-03-23] MEDS: CITALOPRAM HYDROBROMIDE 10 MG TABLET PO SCH (08:38)
[2021-03-23] MEDS: PSYLLIUM SEED 1 PKT PACKET PO SCH (08:38)
[2021-03-23] MEDS: LEVOTHYROXINE SODIUM 75 MCG TABLET PO SCH (08:38)
[2021-03-23] MEDS: CALCIUM CARB 250MG /VITAMIN D 1 UDTAB PO SCH (08:38)
[2021-03-23] MEDS: BLOOD SUGAR DIAGNOSTIC 1 EACH STRIP IN SCH ×4 (08:38→21:31)
[2021-03-23] MEDS: FLUTICASONE/VILANTEROL 1 EACH BLST.W.DEV IH SCH (08:40)
[2021-03-23] MEDS: ACIDOPHILUS/BULGARICUS 1 EACH TAB.CHEW PO SCH ×2 (08:40→17:21)
[2021-03-23] MEDS: INSULIN REGULAR, HUMAN 100 UNIT/ML 3 ML VIAL SQ PRN ×4 (08:45→21:33)
[2021-03-23] MEDS: POTASSIUM CHLORIDE 20 MEQ TAB.PRT.SR PO SCH ×3 (10:14→13:21)
[2021-03-23 10:49] LABS: CHOLESTEROL 99 mg/dL (<200); HDL CHOLESTEROL 47 mg/dL (40-60); LDL 42 mg/dL (0-99); THYROID STIMULATING HORMONE 0.218 uIU/mL (0.358-3.74); TRIGLYCERIDES 41 mg/dL (30-150)
[2021-03-23 12:00] VITALS: BP 134/64
[2021-03-23 16:26] VITALS: BP 152/60
--- NOTE | 2021-03-23 19:20 | NUR ---
RN NOTE RECEIVED PATIENT IN BED RESTING ALERT ORIENTED X3,FORGETFUL,VERBALLY RESPONSIVE ON 2L OXYGEN VIA NASAL CANNULA, O2:94% IV SITE IS ON LEFT FOREARM ON NS IV HYDRATION 75CC/HR AMBULATORY WITH ASSIST SAFETY MEASURE IMPLEMENTED CALL LIGHT WITHIN REACH,BED IN LOW POSITION AND LOCKED,BED ALARM IS ON CONTINUE TO MONITOR.
--- NOTE | 2021-03-23 19:24 | NUR ---
RN OPENING NOTES Patient is alert and oriented with forgetfulness. On 2 liters 02 via N/C with 02 sat of 98%. No c/o sob or chest pain. Fall precautions observed. Bed is in lowest and locked position. Call light with in reach.
[2021-03-23 20:00] VITALS: BP 113/77
[2021-03-24] VITALS: BP 143/63
[2021-03-24 04:00] VITALS: BP 156/69
[2021-03-24 07:09] LABS: BASOPHILS % (AUTO) 0.3 % (0.0-2.0); EOSINOPHILS % (AUTO) 1.5 % (0.0-6.0); HEMATOCRIT 40 % (33-45); HEMOGLOBIN 13.3 g/dL (11.5-14.8); LYMPHOCYTES # (AUTO) 0.8 K/uL (0.8-4.8); LYMPHOCYTES % (AUTO) 7.7 % (20.0-44.0); MEAN CORPUSCULAR HGB CONC 33 g/dl (31.0-36.0); MEAN CORPUSCULAR VOLUME 83 fL (82-100); MONOCYTES # (AUTO) 0.9 K/uL (0.1-1.30); MONOCYTES % (AUTO) 9.4 % (2.0-12.0); NEUTROPHILS % (AUTO) 81.1 % (43.0-81.0); PLATELET COUNT (AUTO) 177 K/uL (150-450); RED BLOOD CELL COUNT(AUTO) 4.87 MIL/uL (4.0-5.2); WHITE BLOOD COUNT (AUTO) 9.9 K/uL (4.3-11.0)
--- NOTE | 2021-03-24 07:19 | NUR ---
RN NOTE PATIENT REMAINS ON ALERT ORIENTED X3 VERBALLY RESPONSIVE NO SOB NOT ACUTE DISTRESS NOTED ALL DUE MEDS GIVEN MD ORDERED KEEP CLEAN AND DRY ALL THE TIME,ALL NEEDS MET ENDORSE NEXT COMING SHIFT FOR CONTINUATION OF CARE
--- NOTE | 2021-03-24 07:55 | NUR ---
RN OPENING NOTES Patient is alert and oriented with forgetfulness. Patient is received in bed getting ready for breakfast. On 2 liters 02 via N/C with 02 sat of 96%. No c/o sob or chest pain. Fall precautions observed. Bed is in lowest and locked position. Call light with in reach.
[2021-03-24 07:56] LABS: ALANINE AMINOTRANSFERASE 28 U/L (12-78); ALBUMIN 3.1 g/dL (3.4-5.0); ALKALINE PHOSPHATASE 68 U/L (46-116); ASPARTATE AMINOTRANSFERASE 27 U/L (15-37); BILIRUBIN,TOTAL 1.2 mg/dL (0.2-1.0); CALCIUM, SERUM 8.9 mg/dL (8.5-10.1); CREATININE 0.7 mg/dL (0.6-1.3); GLUCOSE 126 mg/dL (74-106); MAGNESIUM 2.1 mg/dL (1.8-2.4); PHOSPHORUS 2.4 mg/dL (2.5-4.9); TOTAL PROTEIN, SERUM 7.4 g/dL (6.4-8.2); UREA NITROGEN, BLOOD 12 mg/dL (7-18)
[2021-03-24 08:00] VITALS: BP 146/79
[2021-03-24] MEDS: FLUTICASONE/VILANTEROL 1 EACH BLST.W.DEV IH SCH (09:00)
[2021-03-24] MEDS: PSYLLIUM SEED 1 PKT PACKET PO SCH (09:00)
[2021-03-24 09:03] LABS: CARBON DIOXIDE 21 mmol/L (21-32); CHLORIDE 110 mmol/L (98-107); POTASSIUM 4.1 mmol/L (3.5-5.1); SODIUM SERUM 143 mmol/L (136-145)
[2021-03-24] MEDS: LOSARTAN POTASSIUM 50 MG TABLET PO SCH (10:27)
[2021-03-24] MEDS: LEVOTHYROXINE SODIUM 75 MCG TABLET PO SCH (10:27)
[2021-03-24] MEDS: BLOOD SUGAR DIAGNOSTIC 1 EACH STRIP IN SCH ×4 (10:27→21:58)
[2021-03-24] MEDS: CITALOPRAM HYDROBROMIDE 10 MG TABLET PO SCH (10:27)
[2021-03-24] MEDS: AMLODIPINE BESYLATE 5 MG TABLET PO SCH ×2 (10:28→17:19)
[2021-03-24] MEDS: CALCIUM CARB 250MG /VITAMIN D 1 UDTAB PO SCH (10:28)
[2021-03-24] MEDS: ASPIRIN EC 81 MG TABLET.DR PO SCH (10:28)
[2021-03-24] MEDS: MEMANTINE HCL 5 MG TABLET PO SCH ×2 (10:28→17:19)
[2021-03-24] MEDS: CYANOCOBALAMIN 500 MCG TABLET PO SCH (10:28)
[2021-03-24] MEDS: ATORVASTATIN 40 MG TABLET PO SCH (10:28)
[2021-03-24] MEDS: LINAGLIPTIN 5 MG TABLET PO SCH (10:29)
[2021-03-24] MEDS: ACIDOPHILUS/BULGARICUS 1 EACH TAB.CHEW PO SCH ×2 (10:29→17:14)
[2021-03-24] MEDS: CHOLECALCIFEROL 1,000 UNIT TABLET (VIT D3) PO SCH (10:39)
[2021-03-24] MEDS: INSULIN REGULAR, HUMAN 100 UNIT/ML 3 ML VIAL SQ PRN ×3 (12:21→21:50)
[2021-03-24] MEDS: NEUTRA PHOS 1 POWD.PACKET PO SCH ×2 (13:10→19:55)
[2021-03-24 16:00] VITALS: BP 130/63
[2021-03-24] MEDS: IV NS 0.9% 1,000 ML IV PRN (18:04)
--- NOTE | 2021-03-24 19:38 | NUR ---
RN CLOSING NOTES Patient is alert and oriented with forgetfulness. On room air with 02 sat of 93%. No c/o sob or chest pain. Fall precautions observed. Bed is in lowest and locked position. Call light with in reach.Endorsement done to next shift to monitor saturation room air.
--- NOTE | 2021-03-24 19:44 | NUR ---
RN NOTE PATIENT IN BED AWAKE AND RESPONSIVE. A/O X2-3. ON ROOM AIR, O2 SAT >93%. NO SIGNS OF RESPIRATORY DISTRESS. DENIES ANY PAIN OR DISCOMFORT AT THIS TIME. WITH IV LEFT FOREARM RUNNING NS @ 75CC/HR, NO SIGNS OF INFILTRATION. BED LOCKED AND IN LOWEST POSITION WITH SIDE RAILS UP X2. CALL LIGHT WITHIN REACH. ALL NEEDS ANTICIPATED.
[2021-03-24] MEDS: CEFTRIAXONE 1 G in IV D5W 50 ML IV SCH (23:32)
[2021-03-25] MEDS: AZITHROMYCIN 500 MG in IV D5W 250 ML IV SCH (00:04)
[2021-03-25 04:00] VITALS: BP 132/82
[2021-03-25 06:28] LABS: BASOPHILS % (AUTO) 0.5 % (0.0-2.0); EOSINOPHILS % (AUTO) 3.6 % (0.0-6.0); HEMATOCRIT 41 % (33-45); HEMOGLOBIN 13.5 g/dL (11.5-14.8); LYMPHOCYTES # (AUTO) 1.1 K/uL (0.8-4.8); LYMPHOCYTES % (AUTO) 13.5 % (20.0-44.0); MEAN CORPUSCULAR HGB CONC 33 g/dl (31.0-36.0); MEAN CORPUSCULAR VOLUME 81 fL (82-100); MONOCYTES # (AUTO) 0.8 K/uL (0.1-1.30); MONOCYTES % (AUTO) 10.2 % (2.0-12.0); NEUTROPHILS # (AUTO) 5.7 K/uL (1.8-8.9); NEUTROPHILS % (AUTO) 72.2 % (43.0-81.0); PLATELET COUNT (AUTO) 191 K/uL (150-450); RED BLOOD CELL COUNT(AUTO) 4.98 MIL/uL (4.0-5.2); WHITE BLOOD COUNT (AUTO) 7.9 K/uL (4.3-11.0)
--- NOTE | 2021-03-25 07:22 | NUR ---
RN NOTE PATIENT A/O X2-3. ON ROOM AIR, O2 SAT >93%. NO SIGNS OF RESPIRATORY DISTRESS. DENIES ANY PAIN OR DISCOMFORT AT THIS TIME. WITH IV LEFT FOREARM RUNNING NS @ 75CC/HR, NO SIGNS OF INFILTRATION. NO SIGNIFICANT CHANGES DURING THIS SHIFT. BED LOCKED AND IN LOWEST POSITION WITH SIDE RAILS UP X2. CALL LIGHT WITHIN REACH. ENDORSED TO AM SHIFT.
[2021-03-25 07:27] LABS: CALCIUM, SERUM 8.9 mg/dL (8.5-10.1); CREATININE 0.7 mg/dL (0.6-1.3); PHOSPHORUS 3.6 mg/dL (2.5-4.9); POTASSIUM 3.4 mmol/L (3.5-5.1)
[2021-03-25] MEDS: BLOOD SUGAR DIAGNOSTIC 1 EACH STRIP IN SCH ×4 (07:30→21:54)
--- NOTE | 2021-03-25 07:51 | NUR ---
RN NOTES RECEIVED PATIENT AWAKE A/O X2 , HOB RAISED 90% ANGLE PREPARING TO EAT BREAKFAST, BS = 121 , IS ON ROOM AIR - O2 SAT >94%. NO SOB , NO RESP DISTRESS NOTED, DENIES ANY PAIN OR DISCOMFORT AT THIS TIME, IV LEFT FOREARM RUNNING NS @ 75CC/HR NO INFILTRATION NO REDNESS NOTED AT THIS TIME, SITE INTACT , BED LOCKED AND IN LOWEST POSITION WITH SIDE RAILS UP X2. CALL LIGHT .
[2021-03-25] MEDS ORDERED: POTASSIUM CHLORIDE 20 MEQ TAB.PRT.SR PO ONE (08:00)
[2021-03-25] MEDS: LEVOTHYROXINE SODIUM 75 MCG TABLET PO SCH (09:25)
[2021-03-25] MEDS: CHOLECALCIFEROL 1,000 UNIT TABLET (VIT D3) PO SCH (09:25)
[2021-03-25] MEDS: ASPIRIN EC 81 MG TABLET.DR PO SCH (09:25)
[2021-03-25] MEDS: MEMANTINE HCL 5 MG TABLET PO SCH ×2 (09:26→18:26)
[2021-03-25] MEDS: ACIDOPHILUS/BULGARICUS 1 EACH TAB.CHEW PO SCH ×2 (09:26→18:25)
[2021-03-25] MEDS: AMLODIPINE BESYLATE 5 MG TABLET PO SCH ×2 (09:27→18:26)
[2021-03-25] MEDS: CALCIUM CARB 250MG /VITAMIN D 1 UDTAB PO SCH (09:29)
[2021-03-25] MEDS: LOSARTAN POTASSIUM 50 MG TABLET PO SCH (09:29)
[2021-03-25] MEDS: LINAGLIPTIN 5 MG TABLET PO SCH (09:30)
[2021-03-25] MEDS: CYANOCOBALAMIN 500 MCG TABLET PO SCH (09:31)
[2021-03-25] MEDS: ATORVASTATIN 40 MG TABLET PO SCH (09:31)
[2021-03-25] MEDS: PSYLLIUM SEED 1 PKT PACKET PO SCH (09:32)
[2021-03-25 12:00] VITALS: BP 138/66
[2021-03-25] MEDS: FLUTICASONE/VILANTEROL 1 EACH BLST.W.DEV IH SCH ×2 (12:26→18:09)
[2021-03-25] MEDS: POTASSIUM CHLORIDE 20 MEQ TAB.PRT.SR PO SCH ×2 (13:17→13:19)
[2021-03-25] MEDS: CITALOPRAM HYDROBROMIDE 10 MG TABLET PO SCH (13:17)
[2021-03-25] MEDS: INSULIN REGULAR, HUMAN 100 UNIT/ML 3 ML VIAL SQ PRN ×3 (13:44→22:10)
[2021-03-25] MEDS ORDERED: CT SWABBABLE VALVE TRANS SET 1 EA INFUS.SET MC ONE (14:33)
[2021-03-25] MEDS ORDERED: IV NS 0.9% 250 ML IV ONE (14:33)
[2021-03-25] MEDS ORDERED: IOHEXOL-300 100 ML VIAL IV ONE (14:33)
[2021-03-25 16:00] VITALS: BP 136/68
[2021-03-25] MEDS: CEFTRIAXONE 1 G in IV D5W 50 ML IV SCH (18:10)
--- NOTE | 2021-03-25 19:22 | NUR ---
rn notes pt to be npo at midnight not before, she is allowed to have dinner, family visiting by side, bs = 135 2 units per sliding scale of insulin given, po meds admin and iv intact , no adverse side effects noted from iv abt given, no sob, no distress, no aspiration noted after admin of po medications, bed low to floor, wheels locked call light in reach all safety measures in place at this time.
--- NOTE | 2021-03-25 19:30 | NUR ---
RN NOTE RECEIVED PATIENT IN BED. A/OX2-3. TOLERATING ROOM AIR. RESPIRATIONS ARE EVEN AND UNLABORED. NO S/S SOB NOTED. NO C/O PAIN AT THIS TIME. IN NO APPARENT DISTRESS. IV ACCESS IN LFA PATENT AND SALINE LOCKED. SON AT BEDSIDE. BED IS LOW AND LOCKED, HOB ELEVATED IN HIGH FOWLERS, SIDE RAILS UP X2, PADMA LIGHT WITIHIN REACH. INFORM PATIENT SHE IS NPO AT MIDNIGHT. WILL CONTINUE TO MONITOR THROUGHOUT SHIFT.
[2021-03-25 20:00] VITALS: BP 126/65
--- NOTE | 2021-03-25 22:06 | NUR ---
RN NOTE CALLED PLANT ATTENDANT DR. JACQUELIN RODRIGUEZ AND INFORMED HIM PATIENT BLOOD SUGAR IS 206 BUT PATIENT IS TO BE NPO AT MIDNIGHT AND IF HE WOULD LIKE TO ADMINISTER 4 UNITS OF INSULIN PER SLIDING SCALE. MD TELEPHONE ORDER HOLD INSULIN. ORDER READ BACK, NOTED AND CARRIED OUT.
--- NOTE | 2021-03-26 00:08 | NUR ---
RN NOTE PATIENT IS NOW NPO. REMOVED ALL FOOD AND DRINKS FROM BEDSIDE. 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 NPO SIGN PLACED OUTSIDE ROOM. HOT WATER HEATER INSTALLER MADE AWARE.
[2021-03-26 00:11] LABS: OCCULT BLOOD STOOL POSITIVE (NEGATIVE)
--- NOTE | 2021-03-26 01:22 | NUR ---
RN NOTE GAVE REPORT TO TOMASZ GLYNN FOR CONTINUATION OF CARE. PATIENT REMAINS IN STABLE CONDITION.
[2021-03-26 04:00] VITALS: BP 98/45
[2021-03-26 06:19] LABS: BASOPHILS # (AUTO) 0.1 K/uL (0.0-0.2); BASOPHILS % (AUTO) 0.9 % (0.0-2.0); HEMATOCRIT 38 % (33-45); HEMOGLOBIN 12.8 g/dL (11.5-14.8); LYMPHOCYTES # (AUTO) 1.1 K/uL (0.8-4.8); LYMPHOCYTES % (AUTO) 17.9 % (20.0-44.0); MEAN CORPUSCULAR HGB CONC 34 g/dl (31.0-36.0); MEAN CORPUSCULAR VOLUME 82 fL (82-100); MONOCYTES # (AUTO) 0.7 K/uL (0.1-1.30); MONOCYTES % (AUTO) 10.8 % (2.0-12.0); NEUTROPHILS % (AUTO) 65.4 % (43.0-81.0); PLATELET COUNT (AUTO) 209 K/uL (150-450); RED BLOOD CELL COUNT(AUTO) 4.69 MIL/uL (4.0-5.2); WHITE BLOOD COUNT (AUTO) 6.1 K/uL (4.3-11.0)
--- NOTE | 2021-03-26 06:35 | NUR ---
MS RN CLOSING NOTE PT IS IN BED WITH EYES CLOSED, AROUSABLE TO STIMULATION. A/O X2-3 WITH PERIODS OF CONFUSION. PT IS STABLE ON ROOM AIR. NO SOB OR S/S OF RESPIRATORY DISTRESS NOTED. IV ACCESS IS INTACT, PATENT, AND FLUSHING WELL. PT KEPT NPO SINCE MIDNIGHT DUE TO PROCEDURE ON 03/26/21. ALL NEEDS HAVE BEEN MET. SAFETY PRECAUTIONS MAINTAINED AT ALL TIMES. BED IN LOWEST LOCKED POSITION, HOB ELEVATED, SIDE RAILS UP X2. CALL LIGHT AND TABLE WITHIN REACH. WILL ENDORSE TO ONCOMING NURSE FOR YANDY.
[2021-03-26 06:36] LABS: CALCIUM, SERUM 8.9 mg/dL (8.5-10.1); CREATININE 0.9 mg/dL (0.6-1.3); POTASSIUM 3.8 mmol/L (3.5-5.1)
[2021-03-26 07:01] LABS: FERRITIN 324 ng/mL (8-388)
[2021-03-26 07:07] LABS: IRON, SERUM 33 ug/dl (50-175); TOTAL IRON BINDING CAPACITY 188 ug/dl (250-450)
[2021-03-26] MEDS: LEVOTHYROXINE SODIUM 75 MCG TABLET PO SCH (07:30)
--- NOTE | 2021-03-26 07:30 | NUR ---
RN MS NOTES PT IN BED, AWAKE, ALERT AND ORIENTED, NO COMPLAINT OF PAIN OR ANY DISCOMFORT, BREATHING PATTERN NORMAL, CALL LIGHT WITHIN REACH, ASSISTED TO BATHROOM NEEDED, KEPT PT NPO FOR FINE NEEDLE ASPIRATION OF THE THYROID, PT AWARE, NEEDS ATTENDED.
[2021-03-26] MEDS: BLOOD SUGAR DIAGNOSTIC 1 EACH STRIP IN SCH ×2 (08:04→12:07)
[2021-03-26] MEDS: ASPIRIN EC 81 MG TABLET.DR PO SCH (09:00)
[2021-03-26] MEDS ORDERED: AZITHROMYCIN 250 MG TABLET PO SCH (09:00)
[2021-03-26] MEDS: CALCIUM CARB 250MG /VITAMIN D 1 UDTAB PO SCH (09:00)
[2021-03-26] MEDS: CITALOPRAM HYDROBROMIDE 10 MG TABLET PO SCH (09:00)
[2021-03-26] MEDS: LINAGLIPTIN 5 MG TABLET PO SCH (09:00)
[2021-03-26] MEDS: ATORVASTATIN 40 MG TABLET PO SCH (09:00)
[2021-03-26] MEDS: CYANOCOBALAMIN 500 MCG TABLET PO SCH (09:00)
[2021-03-26] MEDS: AMLODIPINE BESYLATE 5 MG TABLET PO SCH ×2 (09:00→17:43)
[2021-03-26] MEDS: PSYLLIUM SEED 1 PKT PACKET PO SCH (09:00)
[2021-03-26] MEDS: LOSARTAN POTASSIUM 50 MG TABLET PO SCH (09:00)
[2021-03-26] MEDS: MEMANTINE HCL 5 MG TABLET PO SCH ×2 (09:00→17:43)
[2021-03-26] MEDS: ACIDOPHILUS/BULGARICUS 1 EACH TAB.CHEW PO SCH ×2 (09:00→17:42)
[2021-03-26] MEDS: CHOLECALCIFEROL 1,000 UNIT TABLET (VIT D3) PO SCH (09:00)
[2021-03-26] MEDS ORDERED: LEVO500T90 PO (09:23)
--- NOTE | 2021-03-26 12:49 | NUR ---
RN MS NOTES PT BACK FROM NEEDLE BIOPSY VIA WHEELCHAIR, TOLERATED WELL, NO BLEEDING TO SITE AT RIGHT SIDE OF NECK, ATE LUNCH, SEEN AND EXAMINED BY DR. MAC, NEEDS ATTENDED.
[2021-03-26] MEDS ORDERED: GLUCERNA SHAKE 237 ML CAN PO SCH (13:30)
[2021-03-26] MEDS ORDERED: FERR325T23 PO (13:43)
[2021-03-26 17:43] VITALS: BP 138/70
--- NOTE | 2021-03-26 18:00 | NUR ---
RN MS NOTES PT AWAKE, ALERT AND ORIENTED, SITTING IN BED, NO COMPLAINT OF PAIN OR ANY DISCOMFORT, ATE DINNER, DISCHARGE ORDER GIVEN BY DR. MAC, DISCHARGE AND MEDICATION INSTRUCTIONS PROVIDED TO PT AND SON DERECK, VERBALIZED UNDERSTANDING, BELONGINGS ACCOUNTED FOR, PRESCRIBED MEDICATION VERIFIED WITH [facility], ASSISTED TO HOSPITAL LOBBY VIA WHEELCHAIR, PICKED UP BY SON, LEFT VIA PRIVATE CAR IN STABLE CONDITION.
== END 2021-03-26 18:00 | disposition home health service (06) | DRG 871 ==
LOC: ER 21:09 → TELE1 23:25 → MEDSG1 03-24 08:31
PROVIDERS: ADMIT Nurse Practitioner Acute Care; ATTEND Nurse Practitioner Acute Care
PROC: 07D13ZX Extraction of Right Neck Lymphatic, Percutaneous Approach, Diagnostic (ICD-10-PCS; principal; 2021-03-26)
PROC: 0GBH3ZX Excision of Right Thyroid Gland Lobe, Percutaneous Approach, Diagnostic (ICD-10-PCS; 2021-03-26)
DX: A41.9 Sepsis, unspecified organism (principal); J15.6 Pneumonia due to other Gram-negative bacteria; J44.0 Chronic obstructive pulmonary disease with (acute) lower respiratory infection; E87.2 Acidosis; J98.11 Atelectasis; C77.0 Secondary and unspecified malignant neoplasm of lymph nodes of head, face and neck; C78.02 Secondary malignant neoplasm of left lung; C78.01 Secondary malignant neoplasm of right lung; E03.9 Hypothyroidism, unspecified; Z79.84 Long term (current) use of oral hypoglycemic drugs; Z86.73 Personal history of transient ischemic attack (TIA), and cerebral infarction without residual deficits; F03.90 Unspecified dementia, unspecified severity, without behavioral disturbance, psychotic disturbance, mood disturbance, and anxiety; E61.1 Iron deficiency; E78.5 Hyperlipidemia, unspecified; I25.10 Atherosclerotic heart disease of native coronary artery without angina pectoris; Z20.822 Contact with and (suspected) exposure to COVID-19; E87.6 Hypokalemia; R91.8 Other nonspecific abnormal finding of lung field; F09 Unspecified mental disorder due to known physiological condition; I10 Essential (primary) hypertension; C73 Malignant neoplasm of thyroid gland
CPT/HCPCS: 36415; 70450-TC; 71045-TC; 71250-TC; 71260-TC; 73030-TC; 76536-TC; 76942-TC; 80048-TC; 80053-TC; 80061-TC; 80076-TC; 82272-TC; 82378; 82728-TC; 82962-TC; 83540-TC; 83605-TC; 83615-TC; 83735-TC; 84100-TC; 84439-TC; 84443-TC; 84484-TC; 85025-TC; 85730-TC; 87040-TC; 87081-TC; 92526; 92611-TC; 93307-TC; 97112-TC; 97116-TC; 97530-TC; C9803; G0378; J0456; J0696; J1815; J2543; J3370; J7030; J7050; J7060; Q9967; U0003

== ENCOUNTER 2025-08-12 13:56 | Inpatient (IN) | payer BC ==
[~2025-08-12] VITALS: Ht 152.4 cm; Wt 45.8 kg
[~2025-08-12 13:56] MED LIST changes: +FERR325T23 PO
[2025-08-12] MEDS: IV NS 0.9% 500 ML BAG IV ONE (14:59)
[2025-08-12 15:09] LABS: PLATELET COUNT (AUTO) 271 K/uL (150-450); RED BLOOD CELL COUNT(AUTO) 5.06 MIL/uL (4.0-5.2); RED CELL DISTRIBUTION WIDTH 15.1 % (11.5-15.0); WHITE BLOOD COUNT (AUTO) 12.9 K/uL (4.3-11.0)
[2025-08-12 15:17] LABS: CALCIUM, SERUM 8.5 mg/dL (8.5-10.1); CREATININE 0.7 mg/dL (0.6-1.3); SODIUM SERUM 147.0 mmol/L (136-145); UREA NITROGEN, BLOOD 21.0 mg/dL (7-18)
[2025-08-12 15:23] LABS: ASPARTATE AMINOTRANSFERASE 17.0 U/L (15-37); TOTAL PROTEIN, SERUM 7.4 g/dL (6.4-8.2)
[2025-08-12] MEDS ORDERED: VITAMIN B12 IM (16:02)
[2025-08-12 16:47] LABS: BLOOD, URINE Small Ery/uL (NEGATIVE); LEUKOCYTE ESTERASE ,URINE Negative (NEGATIVE); UGLUCOSE Negative (NEGATIVE)
[2025-08-12 16:48] LABS: APPEARANCE,URINE SLIGHTLY CLOUDY (CLEAR); NITRITE, URINE POSITIVE (NEGATIVE)
[2025-08-12 16:49] LABS: ADD URINE CULTURE YES; SQUAMOUS EPITHELIAL CELL,UR Few /HPF (None Seen)
[2025-08-12] MEDS ORDERED: MORPHINE SULFATE INJ 2 MG/ML DISP.SYRIN IV PRN (18:00)
[2025-08-12] MEDS ORDERED: ONDANSETRON HCL/PF 4 MG/2 ML VIAL IVP PRN (18:00)
[2025-08-12] MEDS ORDERED: IV NS 0.9% 1,000 ML IV SCH (18:00)
[2025-08-12] MEDS: CEFTRIAXONE 1GM BAG (ER ONLY) 1 GM/50 ML PIGGYBACK IV ONE (18:39)
[2025-08-12 19:50] VITALS: BP 165/77; TEMP 98.4; O2SAT 98
[2025-08-12 20:00] VITALS: BP 165/77; TEMP 98.4; O2SAT 98
[2025-08-12] MEDS: IV D5/0.45 NACL 1,000 ML IV SCH (20:17)
[2025-08-12] MEDS: HEPARIN SODIUM, PORCINE 5000 UNITS/1 ML VIAL SQ SCH (20:43)
[2025-08-12] MEDS: hydrALAZINE HCL IV 20 MG VIAL IV PRN (20:52)
[2025-08-13] VITALS: BP 160/70; TEMP 97.6; O2SAT 95
[2025-08-13 04:00] VITALS: BP 143/98; TEMP 97.6; O2SAT 95
[2025-08-13 06:55] LABS: PLATELET COUNT (AUTO) 275 K/uL (150-450); RED BLOOD CELL COUNT(AUTO) 5.26 MIL/uL (4.0-5.2); RED CELL DISTRIBUTION WIDTH 15.1 % (11.5-15.0); WHITE BLOOD COUNT (AUTO) 14.1 K/uL (4.3-11.0)
[2025-08-13 07:04] LABS: ASPARTATE AMINOTRANSFERASE 9.0 U/L (15-37); CALCIUM, SERUM 8.1 mg/dL (8.5-10.1); CREATININE 0.7 mg/dL (0.6-1.3); PHOSPHORUS 3.1 mg/dL (2.5-4.9); SODIUM SERUM 143.0 mmol/L (136-145); TOTAL PROTEIN, SERUM 7.1 g/dL (6.4-8.2); UREA NITROGEN, BLOOD 14.0 mg/dL (7-18)
[2025-08-13] MEDS ORDERED: LEVOTHYROXINE SODIUM 75 MCG TABLET PO SCH (07:30)
[2025-08-13 08:00] VITALS: BP 163/87; TEMP 97.3; O2SAT 96
[2025-08-13] MEDS: MEMANTINE HCL 5 MG TABLET PO SCH (09:38)
[2025-08-13] MEDS: POLYETHYLENE GLYCOL 3350 17 GM POWD.PACK PO SCH (09:38)
[2025-08-13] MEDS: DOCUSATE SODIUM LIQ 100 MG/10 ML UDC PO SCH (09:38)
[2025-08-13] MEDS: LOSARTAN POTASSIUM 50 MG TABLET PO SCH (09:39)
[2025-08-13 10:33] VITALS: BP 148/76
[2025-08-13] MEDS: POTASSIUM CHLORIDE 20 MEQ TAB.PRT.SR PO SCH (11:07)
[2025-08-13 16:00] VITALS: BP 158/82; TEMP 98.1; O2SAT 95
[2025-08-13] MEDS: CEFTRIAXONE 1 G in IV D5W 50 ML IV SCH (18:09)
[2025-08-13 20:00] VITALS: BP 165/84; TEMP 97.7; O2SAT 91
[2025-08-13] MEDS: IV D5/0.45 NACL 1,000 ML IV PRN (20:52)
[2025-08-14 00:07] VITALS: BP 165/84; TEMP 97.7; O2SAT 95
[2025-08-14 07:39] LABS: PLATELET COUNT (AUTO) 263 K/uL (150-450); RED BLOOD CELL COUNT(AUTO) 5.17 MIL/uL (4.0-5.2); RED CELL DISTRIBUTION WIDTH 15.2 % (11.5-15.0); WHITE BLOOD COUNT (AUTO) 13.7 K/uL (4.3-11.0)
[2025-08-14 08:09] LABS: CALCIUM, SERUM 8.0 mg/dL (8.5-10.1); CREATININE 0.9 mg/dL (0.6-1.3); PHOSPHORUS 2.7 mg/dL (2.5-4.9); SODIUM SERUM 147.0 mmol/L (136-145); UREA NITROGEN, BLOOD 17.0 mg/dL (7-18)
[2025-08-14] MEDS: LEVOTHYROXINE SODIUM 75 MCG TABLET PO SCH (08:15)
[2025-08-14 09:30] VITALS: BP 157/73; TEMP 97.7; O2SAT 94
[2025-08-14] MEDS: POTASSIUM CHLORIDE 20 MEQ TAB.PRT.SR PO SCH (09:45)
[2025-08-14 13:03] LABS: PLATELET COUNT (AUTO) 280 K/uL (150-450); RED BLOOD CELL COUNT(AUTO) 5.14 MIL/uL (4.0-5.2); RED CELL DISTRIBUTION WIDTH 15.4 % (11.5-15.0); WHITE BLOOD COUNT (AUTO) 15.0 K/uL (4.3-11.0)
[2025-08-14 13:21] LABS: CALCIUM, SERUM 8.0 mg/dL (8.5-10.1); CREATININE 0.9 mg/dL (0.6-1.3); SODIUM SERUM 143 mmol/L (136-145); UREA NITROGEN, BLOOD 17 mg/dL (7-18)
[2025-08-14 13:26] LABS: ASPARTATE AMINOTRANSFERASE 8 U/L (15-37); TOTAL PROTEIN, SERUM 6.8 g/dL (6.4-8.2)
[2025-08-14 17:00] VITALS: BP 158/77; TEMP 97.5; O2SAT 94
[2025-08-14 20:00] VITALS: BP_SYST 138; BP_SYST 169; BP_DIAS 80; BP_DIAS 86; TEMP 97.9; O2SAT 93
[2025-08-14] MEDS: ACETAMINOPHEN 325 MG TABLET PO PRN (20:35)
[2025-08-14 21:52] VITALS: BP 138/80; O2SAT 95
[2025-08-15 08:00] VITALS: BP 99/59; TEMP 97.7; O2SAT 95
[2025-08-15 08:18] LABS: PLATELET COUNT (AUTO) 254 K/uL (150-450); RED BLOOD CELL COUNT(AUTO) 4.94 MIL/uL (4.0-5.2); RED CELL DISTRIBUTION WIDTH 15.4 % (11.5-15.0); WHITE BLOOD COUNT (AUTO) 12.4 K/uL (4.3-11.0)
[2025-08-15 08:34] LABS: CALCIUM, SERUM 8.4 mg/dL (8.5-10.1); CREATININE 0.9 mg/dL (0.6-1.3); SODIUM SERUM 146.0 mmol/L (136-145); UREA NITROGEN, BLOOD 17.0 mg/dL (7-18)
[2025-08-15] MEDS: LEVOTHYROXINE SODIUM 88 MCG TABLET PO SCH (09:35)
[2025-08-15 16:00] VITALS: BP 141/76; TEMP 97.6; O2SAT 94
[2025-08-15 20:00] VITALS: BP 165/71; TEMP 97.9; O2SAT 100
[2025-08-15] MEDS ORDERED: GUAIFENESIN/D-METHORPHAN HB 5 ML UDC PO PRN (21:00)
[2025-08-15 21:24] VITALS: BP 188/76; O2SAT 88
[2025-08-15 21:47] LABS: ABG BASE EXCESS -1.9 mmol/L (-2.0-3.0); ABG OXYGEN SATURATION 98.8 % (94.0-98.0); ABG PCO2 32.3 mmHg (32.0-45.0); ABG PH 7.437 (7.350-7.450); ABG PO2 164.3 mmHg (83.0-108.0); ABG TOTAL HEMOGLOBIN 14.7 G/dL (12.0-16.0); FLOW, BLOOD GAS 15.00 L/min (0.00-30.00); FRACTIONATED INSPIRED OXYGEN 100.0 %; SITE, ABG LEFT BRACHIAL
[2025-08-15 22:00] VITALS: BP 124/53; O2SAT 99
[2025-08-16 01:15] VITALS: O2SAT 98
[2025-08-16 02:00] VITALS: O2SAT 99
[2025-08-16 04:30] VITALS: O2SAT 98
[2025-08-16 07:42] LABS: PLATELET COUNT (AUTO) 267 K/uL (150-450); RED BLOOD CELL COUNT(AUTO) 4.86 MIL/uL (4.0-5.2); RED CELL DISTRIBUTION WIDTH 15.3 % (11.5-15.0); WHITE BLOOD COUNT (AUTO) 11.8 K/uL (4.3-11.0)
[2025-08-16 08:00] VITALS: BP 144/64; TEMP 98.6; O2SAT 98
[2025-08-16] MEDS ORDERED: NITR100C PO (08:51)
[2025-08-16 09:30] VITALS: BP 144/64
[2025-08-16] MEDS ORDERED: LEVO88TA5 PO (11:59)
== END 2025-08-16 13:00 | DRG 871 ==
LOC: ER 14:05 → MED 18:48 → TELE 20:21 → MED 08-13 10:00
PROVIDERS: ADMIT Internal Medicine; ATTEND Internal Medicine
DX: A41.9 Sepsis, unspecified organism (principal); G93.41 Metabolic encephalopathy; R62.7 Adult failure to thrive; E11.9 Type 2 diabetes mellitus without complications; E03.9 Hypothyroidism, unspecified; B96.20 Unspecified Escherichia coli [E. coli] as the cause of diseases classified elsewhere; N39.0 Urinary tract infection, site not specified; J44.9 Chronic obstructive pulmonary disease, unspecified; I10 Essential (primary) hypertension; F03.90 Unspecified dementia, unspecified severity, without behavioral disturbance, psychotic disturbance, mood disturbance, and anxiety; E78.5 Hyperlipidemia, unspecified; E86.0 Dehydration; E80.6 Other disorders of bilirubin metabolism; M48.061 Spinal stenosis, lumbar region without neurogenic claudication
CPT/HCPCS: 36415; 36600; 71045-TC; 72131-TC; 80048-TC; 80053-TC; 81001; 82803-TC; 82962-TC; 83735-TC; 84100-TC; 84439-TC; 84443-TC; 84481; 84484-TC; 85025-TC; 87086-TC; 87186-TC; 94799-TC; 97110-TC; 97116-TC; 97530-TC; 97535-TC; A4223; G0378; J0360; J0696; J1644; J3490; J7040; J7060